=== PATIENT | female | born 1935 | race Caucasian/White ===

== ENCOUNTER 2016-12-15 10:20 | Inpatient (IN) | payer MEDICARE ==
[~2016-12-15] VITALS: Ht 137.2 cm; Wt 62.0 kg
[~2016-12-15 10:20] MED LIST: ceFAZolin SOD 1 GM in D5W MINI-BAG PLUS 50 ML IV SCH
[2016-12-15] MEDS ORDERED: PERCOCET 5MG/325MG TAB PO PRN ×4 (13:30→23:30)
[2016-12-15] MEDS ORDERED: ONDANSETRON 4MG/2ML VIAL (J2405) IV PRN ×2 (13:30→23:15)
[2016-12-15] MEDS ORDERED: NALOXONE INJ 0.4 MG/1 ML VIAL (J2310) IV PRN (13:30)
[2016-12-15] MEDS ORDERED: MORPHINE 2 MG/ML 1ML SYRINGE IV PRN ×2 (13:30→23:15)
[2016-12-15 15:05] VITALS: BP 123/69
[2016-12-15 15:54] LABS: INR 1.12
[2016-12-15 16:10] LABS: ALBUMIN 3.6 GM/DL (3.2-5.2); ALBUMIN/GLOBULIN RATIO 1.29 (1.00-1.93); ALKALINE PHOSPHATASE 68 U/L (45-117); ALT/SGPT 20 U/L (12-78); ANION GAP 8 MEQ/L (8-16); AST/SGOT 24 U/L (15-37); BILIRUBIN,TOTAL 0.7 MG/DL (0.2-1.0); BLOOD UREA NITROGEN 18 MG/DL (7-18); CARBON DIOXIDE LEVEL 27 MEQ/L (21-32); CHLORIDE LEVEL 106 MEQ/L (98-107); CREATININE FOR GFR 0.84 MG/DL (0.55-1.02); GLOMERULAR FILTRATION RATE > 60.0 (>32); GLUCOSE, FASTING 112 MG/DL (83-110); POTASSIUM SERUM 4.2 MEQ/L (3.5-5.1); SODIUM LEVEL 141 MEQ/L (136-145); TOTAL PROTEIN 6.4 GM/DL (6.4-8.2)
[2016-12-15 16:19] LABS: MEAN CORPUSCULAR HEMOGLOBIN 31.5 pg (27.0-33.0); MEAN CORPUSCULAR HGB CONC 32.9 g/dl (32.0-36.5); MEAN CORPUSCULAR VOLUME 95.8 fl (80.0-96.0); RED CELL DISTRIBUTION WIDTH 13.1 % (11.5-14.5); WHITE BLOOD COUNT 8.7 K/mm3 (4.0-10.0)
[2016-12-15] MEDS ORDERED: CALCTAB75 PO (16:20)
[2016-12-15] MEDS ORDERED: ASPI81TA7 PO (16:20)
[2016-12-15] MEDS ORDERED: VITMTA PO (16:20)
[2016-12-15] MEDS ORDERED: ATOR1TAB19 PO (16:20)
[2016-12-15] MEDS ORDERED: FISH500C PO (16:20)
[2016-12-15] MEDS ORDERED: COLA100C3 PO (16:20)
[2016-12-15] MEDS ORDERED: PRESCAP PO (16:20)
[2016-12-15] MEDS ORDERED: LYSI500C PO (16:20)
[2016-12-15] MEDS ORDERED: BIMA01SOL OU (16:20)
[2016-12-15] MEDS ORDERED: VITA500T3 PO (16:20)
[2016-12-15] MEDS ORDERED: LISI-542 PO (16:20)
--- NOTE | 2016-12-15 19:09 | CR ---
DATE OF CONSULTATION: 12/15/2016 CHIEF COMPLAINT: Left hip fracture interochanteric. HISTORY: This is an 81-year-old woman who lives in [place] with her family who presents here with a left hip fracture after presenting to [facility] this morning. She fell when she was going to close the window. She was transferred here to as a direct admission to the medical service. Denies any other injury. There is noted to be a bruise left shoulder and her left proximal leonardo. She denies any pain other than her left hip pain. The record here indicates that this actually happened last night. MEDICATIONS: Medications include aspirin, lisinopril, atorvastatin, Lumigan ophthalmic, Colace, polyethylene glycol as needed ALLERGIES: NO KNOWN DRUG ALLERGIES MEDICAL PROBLEMS: Include hypertension, hypercholesterolemia. PAST MEDICAL HISTORY: Notable for hypertension, constipation. REVIEW OF SYSTEMS: She denies any chest pain, shortness of breath. Denies any skin problems. Denies any endocrine abnormalities. Denies any kidney, liver problems. PHYSICAL EXAMINATION: GENERAL: On exam otherwise fairly healthy appearing woman no acute distress. She is mildly confused, her baseline according to the daughter and son-in-law. HEENT: Extraocular muscles intact. Pharynx is benign. She has nonlabored breathing. She has a benign abdomen soft, nontender. EXTREMITIES: Left upper extremity demonstrates some bruising over the anterior aspect of her left shoulder which she tolerates is a full range of motion. Shoulder with no significant irritability. Her left lower extremity is shortened and externally rotated and I did not attempt range of motion of her left hip but her right hip does not seem to be irritable and she has no tenderness of right lower extremity. Left lower extremity demonstrates some bruising over the proximal medial leonardo. Radiographs were available on a CD that were difficult to bring us on the computer but eventually I was able to identify that the AP pelvis and left femur demonstrates that she has a comminuted, shortened intertrochanteric hip fracture on the left. Left shoulder x-ray was interpreted as unremarkable for any obvious fracture. I do not see any clear evidence of any evidence of a tib-fib film. IMPRESSION: 81-year-old woman with left intertrochanteric hip fracture. RECOMMENDATIONS: She will need medical clearance for the operating room. I have ordered preoperative antibiotics type and screen kept her nothing by mouth. I have requested that the that orthopedics be contacted when she is medically cleared. CRISTHIAN's and sequential will be ordered. I would prefer that we avoid anticoagulation medications unless there is going to be a significant delay. For now we will use TEDS and sequential and be available when she is ready for the operating room.
[2016-12-15] MEDS ORDERED: DOCUSATE SODIUM 100 MG CAP PO PRN (19:15)
[2016-12-15] MEDS ORDERED: fentaNYL 100 MCG/2 ML INJECTION (J3010) As Ordered ONE (19:57)
[2016-12-15] MEDS ORDERED: MIDAZOLAM INJ 2 MG/2 ML VIAL (J2250) As Ordered ONE (19:57)
[2016-12-15] MEDS ORDERED: PROPOFOL 500 MG/50 ML VIAL As Ordered ONE (19:57)
[2016-12-15] MEDS ORDERED: ONDANSETRON 4MG/2ML VIAL (J2405) As Ordered ONE (20:02)
[2016-12-15] MEDS ORDERED: ROCURONIUM BROMIDE 50 MG/5 ML VIAL As Ordered ONE (20:23)
[2016-12-15] MEDS ORDERED: PROPOFOL 200 MG/20 ML VIAL As Ordered ONE (20:23)
[2016-12-15] MEDS ORDERED: LIDOCAINE 2% INJ 100 MG/5 ML SDV (FOR ANES.) As Ordered ONE (20:23)
--- NOTE | 2016-12-15 22:01 | HPE ---
DATE OF ADMISSION: 12/15/2016 PRIMARY CARE PHYSICIAN: Dr. Jose Maxwell, however patient is transferring care to Dillan Luciano MD OPHTHALMOLOGIST: Dr. Pollock CHIEF COMPLAINT: Fall. HISTORY OF PRESENT ILLNESS: Ms. Thompson is an 81-year-old female with multiple past medical history who transferred from [facility] to [facility] due to left intertrochanteric fracture. At this time patient also has altered mental status possibly secondary to medication (Fentanyl and Percocet) as well as history of Alzheimer's. Patient was accompanied by her children. One of her daughters explained that she had one episode of fall early this morning, according to the documentation from [facility], patient stated earlier that she got up of bed because she thought it was raining and went to the living room to check the windows when she tripped and fell injuring her left hip and has indicated to the EMS that patient has a history of Alzheimer's, however at the time that patient was found by EMS patient was alert and oriented times three and denied having headache, neck or back injury. She also denied numbness and tingling, syncope or near syncope episode. According to the documentation from [facility], patient said that it was a mechanical fall however it was not witnessed by and patient was laying down on the floor for about one hour before found her and called 911. However, due to altered mental status this cannot be verified by patient at this time. ALLERGIES: No known drug allergies. HOME MEDICATION: - aspirin 81 mg by mouth daily - atorvastatin 10 mg by mouth daily - Lumigan one drop both eyes at bedtime - calcium/vitamin D 1 tab by mouth daily - vitamin B12 500 mg by mouth daily - Colace 100 mg by mouth daily as needed constipation - Fish oil 500 mg by mouth daily - lisinopril 5 mg by mouth daily - lysin 500 mg by mouth daily - multivitamin 1 tab by mouth daily - PreserVision AREDS 1 capsule by mouth daily PAST MEDICAL HISTORY: 1. Hypertension. 2. Hypercholesterolemia. PAST SURGICAL HISTORY: No known surgeries. REVIEW OF SYSTEMS: Review of system could not be obtained due to patient's altered mental status. PHYSICAL EXAMINATION: Vital signs: Temperature 99, pulse 92, respiratory rate 18 , blood pressure 123/69, pulse ox 95% on room air. GENERAL APPEARANCE: Patient was lying in bed in no acute distress. Patient was awake, but not oriented to time, place and person. HEENT: Normocephalic, atraumatic. Pupils equal, round, reactive to light. Oral mucosa is moist. NECK: Soft, supple, no lymphadenopathy. No jugular venous distention. HEART: Regular rate and rhythm, normal S1, S2. ABDOMEN; Soft, non-tender, positive bowel sounds in all quadrants. LUNGS: Patient has clear breath sounds bilaterally. Good air movement. EXTREMITIES: Patient has tenderness to palpation of the left hip as well as swelling compared to the right hip, however no ecchymosis was noticed in that area. The range of motion cannot be obtained due to patient uncooperative to altered mental status. However, patient has normal sensation in both lower extremities. Also due to altered mental status I cannot evaluate the length and her position in bed. I cannot evaluate the patient's lower extremity length to compare. Patient also has mild ecchymotic changes on the left shoulder as well as mild tenderness. NEURO: Neuro exam cannot be obtained due to patient's altered mental status. LABORATORY DATA: White blood cells 8.7, red blood cells 3.49, hemoglobin 11, hematocrit 33.4, MCV 95.8, MCH 31.5, MCHC 32.9, RDW 13.1, platelet count 188, PT 14.5, INR 1.12, APTT 28.1, sodium 141, potassium 4.2, chloride 106, common dioxide 27, anion gap 8, BUN 18, creatinine 0.84, glomerular filtration rate (GFR) more than 60, fasting glucose 112, calcium 9, total bilirubin 0.7, AST 24, ALT 20, alkaline phosphatase 68, total protein 6.4, albumin 3.6. IMAGING TECHNIQUE: X-ray of the femur shows left intertrochanteric fracture. Chest x-ray from [facility] indicated no acute disease identified. CT scan of the brain without contrast from [facility] indicated moderate diffuse cerebral atrophy and small vessel atherosclerotic disease. X-ray of pelvis from [facility] indicated left intertrochanteric fracture. X-ray of the shoulder from [facility] indicated mild osteopenia of the shoulder. ASSESSMENT AND PLAN: 1. Left intertrochanteric fracture. Orthopedic has been consulted. patient will be NPO tonight. Also patient is started on cefazolin by orthopedics for prophylaxis as well as pain management. Patient is medically optimized for procedure. 2. Altered mental status. This is possibly secondary to pain medication ( Fentanyl and Percocet). At this time, patient has received two doses of Narcan 0.1 mg due to altered mental status, however patient continued to have altered mental status. We will continue patient on Narcan 0.1 mg every 5 MP as needed IV for respiratory rate less than 10. according to the documentation form [facility] patient's indicated that patient has Alzheimer however I could not find medical documentation to indicate that. 3. Hyperlipidemia. We will continue patient on Lipitor 10 mg by mouth daily. 4. GI prophylaxis. Due to patient being nothing by mouth patient is on Protonix 40 mg by mouth daily. 5. Deep vein thrombosis prophylaxis. Patient is on thromboembolic deterrent stockings (TEDS) and sequentials. 6. Hypertension. At home patient is on Lisinopril 5 m by mouth daily. However, at this time patient's blood pressure is stable. We will hold this medication until after surgery. 7. Hypercholesterolemia. We will continue patient on fish oil 500 mg by mouth daily. My preceptor for this patient encounter was Dr. Doug Martinez. The preceptor was physically present in the building during the encounter and was fully available as needed. All aspects of the patient interview, examination, medical decision making process, and medical care plan development were reviewed and approved by the preceptor. The preceptor is aware and concurs with the plan as stated in the body of this note and will attest to such by his/her co-signature. TOMÁS
[2016-12-15] MEDS ORDERED: SUGAMMADEX SODIUM 500 MG/5 ML VIAL (BRIDION) As Ordered ONE (22:25)
[2016-12-15] MEDS ORDERED: NS 1,000 ML IV SCH (23:15)
[2016-12-15] MEDS ORDERED: LR 1,000 ML IV SCH (23:15)
[2016-12-15] MEDS ORDERED: fentaNYL 100 MCG/2 ML INJECTION (J3010) IV PRN (23:15)
--- NOTE | 2016-12-15 23:28 | REP ---
LEFT LOWER LEG: AP and lateral views of the left lower leg are performed and demonstrate no fracture or dislocation. No intrinsic osseous pathology is seen. IMPRESSION: No fracture or dislocation. Signed by Ziyad Goodman MD 12/16/2016 05:00 P
[2016-12-16] VITALS (9 sets, daily range): BP systolic 96–154; BP diastolic 56–68
[2016-12-16] MEDS: ceFAZolin SOD 1 GM in D5W MINI-BAG PLUS 50 ML IV SCH ×2 (04:27→13:28)
--- NOTE | 2016-12-16 07:30 | REP ---
Left hip intraoperative fluoroscopic views: A series of seven intraoperative fluoroscopic views are performed during placement of an intramedullary fabio in the left hip and left femur. The views demonstrate gamma nail fixation with the skeletal structures and hardware are in satisfactory positions alignment on all views. There are two interference screws at the distal tip of the gamma nail. Fluoroscopic exposure time is 2 minutes and 15 seconds. The intra operative fluoroscopic views are performed with last image hold technology. These images require no additional radiation. Signed by Ziyad Huber MD 12/16/2016 07:21 A
[2016-12-16] MEDS: MIRALAX *UNIT DOSE* 17GM PACKET PO SCH (09:00)
[2016-12-16] MEDS: PANTOPRAZOLE 40MG TAB (PROTONIX) PO SCH (09:00)
[2016-12-16] MEDS: SENOKOT S TAB PO SCH ×2 (09:00→21:00)
[2016-12-16] MEDS: MULTIVITAMINS/MINERALS THERAP 1 TAB PO SCH (09:00)
[2016-12-16] MEDS: MOM 30ML SUSPENSION UDC PO SCH (09:00)
[2016-12-16] MEDS: ATORVASTATIN 10 MG TAB PO SCH (09:00)
[2016-12-16 11:41] LABS: MEAN CORPUSCULAR HEMOGLOBIN 32.1 pg (27.0-33.0); MEAN CORPUSCULAR HGB CONC 33.8 g/dl (32.0-36.5); RED CELL DISTRIBUTION WIDTH 13.2 % (11.5-14.5)
[2016-12-16 12:01] LABS: ANION GAP 10 MEQ/L (8-16); BLOOD UREA NITROGEN 18 MG/DL (7-18); CARBON DIOXIDE LEVEL 23 MEQ/L (21-32); CHLORIDE LEVEL 108 MEQ/L (98-107); CREATININE FOR GFR 0.78 MG/DL (0.55-1.02); GLOMERULAR FILTRATION RATE > 60.0 (>32); GLUCOSE, FASTING 96 MG/DL (83-110); MAGNESIUM LEVEL 1.9 MG/DL (1.8-2.4); POTASSIUM SERUM 3.9 MEQ/L (3.5-5.1); SODIUM LEVEL 141 MEQ/L (136-145)
--- NOTE | 2016-12-16 12:06 | RO ---
DATE OF PROCEDURE: 12/15/2016 PREPROCEDURE DIAGNOSIS: Comminuted left intertrochanteric fracture of the hip, possible pathologic fracture. POSTPROCEDURE DIAGNOSIS: Comminuted left intertrochanteric fracture of the hip, possible pathologic fracture. PROCEDURE PERFORMED: Left hip open reduction and cephalomedullary nailing. PRIMARY SURGEON: Dr. Ion Mg OCEAN FISHING GUIDE: BETSY Allen ANESTHESIA: Spinal. ESTIMATED BLOOD LOSS: 150 mL. SPECIMENS: Reamings from the femoral head and neck. No blood administered. No complications. IMPLANTS: Synthes long trochanteric fixation nail and screws. DESCRIPTION OF PROCEDURE: The patient was identified in the preoperative holding area by name, medical record, and date of . Surgical site was marked in consultation with the patient and she was evaluated by anesthesia. When she was ready, she was brought back to the operative suite on a gurney and transferred to the operating room table. At this point, spinal anesthesia was induced without complication. The patient was placed on the fracture table with the left lower extremity in traction and well leg appropriately padded, appropriately padding all bony prominences. Prior to beginning the procedure, a final time out was performed and all of them agreed. She was given IV antibiotics with Ancef prior to incision. I began the procedure by achieving a provisional closed reduction with axial traction, adduction and internal rotation, confirmed closed reduction with fluoroscopic views. Next, the left lower extremity was sterilely prepped and draped in the usual fashion, and I began the procedure by making a longitudinal dissection proximal to the tip of the greater trochanter. The greater trochanter was significantly comminuted and displaced with no firm entry point. The entry pin and reamer were inserted in the appropriate location, followed by the ball-tipped guidewire confirming satisfactory intramedullary position. Next, the medullary canal was sequentially reamed up to 12.5 with satisfactory chatter along the cortical surface. Next an appropriately sized Synthes trochanteric fixation nail was inserted. I did have to perform a slightly open reduction with proximal dissection of the greater trochanter using upward handle and medial force to maintain the fracture fragment in satisfactory position, while inserting the nail into the appropriately sized hip screw and confirmed satisfactory position within the femoral head and neck at this time with multiple fluoroscopic views in orthogonal planes. I next turned my attention to the distal interlock. Using the perfect stebbins technique, I inserted to appropriately sized distal entry lock screws. The nail was now well fixed distally and in satisfactory position. Final x-rays in orthogonal planes throughout the length of the nail confirmed satisfactory reduction of the fracture and placed into the hardware. Of note, the femoral head and neck reamings were captured and sent to the back table and placed in formalin for pathologic evaluation. The wounds were next copiously irrigated and closed in layers. Sterile dressings were applied. The patient was brought out of anesthesia and transferred to the postanesthesia care unit.
[2016-12-16] MEDS: traMADol 50 MG TAB PO PRN ×2 (13:27→17:43)
--- NOTE | 2016-12-16 15:21 | REP ---
LEFT FEMUR COMPLETE: 12/16/2016 CLINICAL HISTORY: Status post ORIF for comminuted intertrochanteric fracture, left hip. FINDINGS: Four images from postoperative left femur series 12/16/2016 compared to yesterday's acute fracture series. An intramedullary fabio and a blade paddle fixation of the comminuted intertrochanteric fracture with varus deformity has corrected a displaced lesser and the superior margin of the greater trochanter which is displaced medial to the intramedullary fabio abutting the femoral neck at its intertrochanteric junction. Some subcutaneous air related to placement of the intramedullary fabio with proximal lateral thigh and hip and two fixation screws transversely across the distal shaft of the left femur. No other finding. The varus deformity is corrected. Skin jeremiah are present. Signed by Zelalem Terrazas MD 12/16/2016 03:58 P
[2016-12-16] MEDS ORDERED: WARFARIN SOD 5 MG TAB PO ONE (17:00)
--- NOTE | 2016-12-16 17:54 | REP ---
LEFT HIP, TWO VIEWS: Two views of the left hip are performed. There is a comminuted intertrochanteric fracture of the proximal left femur. There is varus angulation. On the oblique view there is a somewhat rounded area of lucency in the femoral neck region, which I feel is most likely artifactual, although an underlying bone lesion cannot be completely excluded. Signed by Ziyad Goodman MD 12/18/2016 05:06 P
--- NOTE | 2016-12-16 18:35 | IPNPDOC ---
Subjective Date Seen The patient was seen on 12/16/16. Subjective Chief Complaint/HPI The patient is a 81-year-old female admitted with a reason for visit of Comminuted Fracture Left Intertrochanteric. Objective Physical Examination General Exam: Positive: No Acute Distress ENT Exam: Positive: Atraumatic, Mucous membr. moist/pink, Pharynx Normal Chest Exam: Positive: Clear to auscultation, Normal air movement Heart Exam: Positive: Rate Normal, Regular Rhythm, Normal S1, Normal S2, Negative: Murmurs, Rubs Assessment /Plan Problems (1) Hip fracture (2) Hip fracture, left Plan/VTE VTE Prophylaxis Ordered?: Yes VS, I&O, 24H, Fishbone Vital Signs/I&O Vital Signs Date Time Temp Pulse Resp B/P (MAP) Pulse Ox O2 Delivery O2 Flow Rate FiO2 12/16/16 18:26 18 12/16/16 14:00 99.5 98 110/60 (77) 94 Nasal Cannula 2.0 I&O- Last 24 Hours up to 6 AM 12/16/16 06:00 Intake Total 2000 ml Output Total 300 ml Balance 1700 ml Laboratory Data 24H LABS Laboratory Tests 2 12/16/16 11:18: Anion Gap 10, Glomerular Filtration Rate > 60.0, Blood Urea Nitrogen 18, Creatinine 0.78, Sodium Level 141, Potassium Level 3.9, Chloride Level 108H, Carbon Dioxide Level 23, Calcium Level 8.0L, Magnesium Level 1.9 CBC/BMP Laboratory Tests 12/16/16 11:18 Red Blood Count 2.67 L, Mean Corpuscular Volume 95.0, Mean Corpuscular Hemoglobin 32.1, Mean Corpuscular Hemoglobin Concent 33.8, Red Cell Distribution Width 13.2, Calcium Level 8.0 L NATHANAEL MONTOYA DO Dec 16, 2016 18:35
[2016-12-17 02:00] VITALS: BP 102/58
[2016-12-17 06:00] VITALS: BP 101/54
[2016-12-17 06:57] LABS: MEAN CORPUSCULAR HEMOGLOBIN 32.1 pg (27.0-33.0); MEAN CORPUSCULAR HGB CONC 33.1 g/dl (32.0-36.5); MEAN CORPUSCULAR VOLUME 96.9 fl (80.0-96.0); RED CELL DISTRIBUTION WIDTH 12.8 % (11.5-14.5); WHITE BLOOD COUNT 7.1 K/mm3 (4.0-10.0)
[2016-12-17 06:59] LABS: INR 1.48
[2016-12-17 07:08] LABS: ANION GAP 6 MEQ/L (8-16); BLOOD UREA NITROGEN 22 MG/DL (7-18); CALCIUM LEVEL 8.2 MG/DL (8.8-10.2); CARBON DIOXIDE LEVEL 27 MEQ/L (21-32); CHLORIDE LEVEL 105 MEQ/L (98-107); CREATININE FOR GFR 0.89 MG/DL (0.55-1.02); GLOMERULAR FILTRATION RATE > 60.0 (>32); GLUCOSE, FASTING 112 MG/DL (83-110); MAGNESIUM LEVEL 2.2 MG/DL (1.8-2.4); POTASSIUM SERUM 3.9 MEQ/L (3.5-5.1); SODIUM LEVEL 138 MEQ/L (136-145)
[2016-12-17] MEDS: ATORVASTATIN 10 MG TAB PO SCH (09:00)
[2016-12-17] MEDS: MULTIVITAMINS/MINERALS THERAP 1 TAB PO SCH (09:00)
[2016-12-17] MEDS: MIRALAX *UNIT DOSE* 17GM PACKET PO SCH (09:00)
[2016-12-17] MEDS: SENOKOT S TAB PO SCH ×2 (09:00→21:00)
[2016-12-17] MEDS: MOM 30ML SUSPENSION UDC PO SCH (09:00)
[2016-12-17] MEDS: PANTOPRAZOLE 40MG TAB (PROTONIX) PO SCH (09:00)
[2016-12-17] MEDS: NS 1,000 ML IV SCH ×2 (12:03→20:50)
[2016-12-17] MEDS ORDERED: WARFARIN SOD 5 MG TAB PO ONE (17:00)
--- NOTE | 2016-12-17 18:29 | IPNPDOC ---
Subjective Date Seen The patient was seen on 12/17/16. Subjective Chief Complaint/HPI The patient is a 81-year-old female admitted with a reason for visit of Comminuted Fracture Left Intertrochanteric. Assessment /Plan Problems (1) Hip fracture Plan/VTE VTE Prophylaxis Ordered?: Yes VS, I&O, 24H, Fishbone Vital Signs/I&O Vital Signs Date Time Temp Pulse Resp B/P (MAP) Pulse Ox O2 Delivery O2 Flow Rate FiO2 12/17/16 08:50 Room Air 12/17/16 06:00 98.6 77 18 101/54 (70) 99 2.0 I&O- Last 24 Hours up to 6 AM 12/17/16 06:00 Intake Total 360 ml Output Total 0 ml Balance 360 ml Laboratory Data 24H LABS Laboratory Tests 2 12/17/16 06:34: Prothrombin Time 18.0H, Prothromb Time International Ratio 1.48, Anion Gap 6L, Glomerular Filtration Rate > 60.0, Blood Urea Nitrogen 22H, Creatinine 0.89, Sodium Level 138, Potassium Level 3.9, Chloride Level 105, Carbon Dioxide Level 27, Calcium Level 8.2L, Magnesium Level 2.2 CBC/BMP Laboratory Tests 12/17/16 06:34 Red Blood Count 2.53 L, Mean Corpuscular Volume 96.9 H, Mean Corpuscular Hemoglobin 32.1, Mean Corpuscular Hemoglobin Concent 33.1, Red Cell Distribution Width 12.8, Calcium Level 8.2 L NATHANAEL MONTOYA DO Dec 17, 2016 18:29
[2016-12-17 22:00] VITALS: BP 129/68
[2016-12-18 06:00] VITALS: BP 135/67
[2016-12-18 06:34] LABS: MEAN CORPUSCULAR HEMOGLOBIN 31.7 pg (27.0-33.0); MEAN CORPUSCULAR HGB CONC 33.8 g/dl (32.0-36.5); MEAN CORPUSCULAR VOLUME 93.8 fl (80.0-96.0); RED CELL DISTRIBUTION WIDTH 13.6 % (11.5-14.5); WHITE BLOOD COUNT 8.4 K/mm3 (4.0-10.0)
[2016-12-18 06:47] LABS: INR 1.48
[2016-12-18 06:54] LABS: ANION GAP 9 MEQ/L (8-16); BLOOD UREA NITROGEN 14 MG/DL (7-18); CALCIUM LEVEL 8.4 MG/DL (8.8-10.2); CARBON DIOXIDE LEVEL 24 MEQ/L (21-32); CHLORIDE LEVEL 110 MEQ/L (98-107); CREATININE FOR GFR 0.68 MG/DL (0.55-1.02); GLOMERULAR FILTRATION RATE > 60.0 (>32); GLUCOSE, FASTING 113 MG/DL (83-110); POTASSIUM SERUM 3.5 MEQ/L (3.5-5.1); SODIUM LEVEL 143 MEQ/L (136-145)
[2016-12-18] MEDS: MOM 30ML SUSPENSION UDC PO SCH (09:00)
[2016-12-18] MEDS: MIRALAX *UNIT DOSE* 17GM PACKET PO SCH (09:00)
[2016-12-18] MEDS: ENOXAPARIN 30 MG/0.3 ML SYR (J1650) SC SCH (09:16)
[2016-12-18] MEDS: MULTIVITAMINS/MINERALS THERAP 1 TAB PO SCH (09:16)
[2016-12-18] MEDS: SENOKOT S TAB PO SCH ×2 (09:16→20:39)
[2016-12-18] MEDS: PANTOPRAZOLE 40MG TAB (PROTONIX) PO SCH (09:16)
[2016-12-18] MEDS: ATORVASTATIN 10 MG TAB PO SCH (09:16)
[2016-12-18] MEDS: ACETAMINOPHEN TAB 650MG DOSE (2X325MG) PO PRN ×2 (09:17→20:40)
[2016-12-18] MEDS: NS 1,000 ML IV SCH ×2 (10:10→23:02)
[2016-12-18 14:00] VITALS: BP 122/65
[2016-12-18] MEDS ORDERED: WARFARIN SOD 3 MG TAB PO ONE (17:00)
[2016-12-18 22:00] VITALS: BP 134/63
[2016-12-19 06:00] VITALS: BP 141/65
[2016-12-19 06:44] LABS: MEAN CORPUSCULAR HEMOGLOBIN 31.9 pg (27.0-33.0); MEAN CORPUSCULAR HGB CONC 33.7 g/dl (32.0-36.5); MEAN CORPUSCULAR VOLUME 94.7 fl (80.0-96.0); RED CELL DISTRIBUTION WIDTH 13.6 % (11.5-14.5); WHITE BLOOD COUNT 7.5 K/mm3 (4.0-10.0)
[2016-12-19 06:58] LABS: ANION GAP 7 MEQ/L (8-16); BLOOD UREA NITROGEN 12 MG/DL (7-18); CALCIUM LEVEL 8.5 MG/DL (8.8-10.2); CARBON DIOXIDE LEVEL 26 MEQ/L (21-32); CHLORIDE LEVEL 110 MEQ/L (98-107); CREATININE FOR GFR 0.61 MG/DL (0.55-1.02); GLOMERULAR FILTRATION RATE > 60.0 (>32); GLUCOSE, FASTING 100 MG/DL (83-110); MAGNESIUM LEVEL 2.1 MG/DL (1.8-2.4); POTASSIUM SERUM 3.3 MEQ/L (3.5-5.1); SODIUM LEVEL 143 MEQ/L (136-145)
[2016-12-19] MEDS: MULTIVITAMINS/MINERALS THERAP 1 TAB PO SCH ×2 (09:00→10:04)
[2016-12-19] MEDS: SENOKOT S TAB PO SCH ×2 (10:04→20:18)
[2016-12-19] MEDS: MOM 30ML SUSPENSION UDC PO SCH (10:04)
[2016-12-19] MEDS: ENOXAPARIN 30 MG/0.3 ML SYR (J1650) SC SCH (10:04)
[2016-12-19] MEDS: PANTOPRAZOLE 40MG TAB (PROTONIX) PO SCH (10:04)
[2016-12-19] MEDS: MIRALAX *UNIT DOSE* 17GM PACKET PO SCH (10:04)
[2016-12-19] MEDS: ATORVASTATIN 10 MG TAB PO SCH (10:04)
[2016-12-19] MEDS: NS 1,000 ML IV SCH (11:56)
[2016-12-19] MEDS: ACETAMINOPHEN TAB 650MG DOSE (2X325MG) PO PRN (12:25)
[2016-12-19 14:00] VITALS: BP 112/66
[2016-12-19 22:00] VITALS: BP 144/71
[2016-12-20] MEDS: NS 1,000 ML IV SCH ×2 (01:56→12:26)
[2016-12-20 06:00] VITALS: BP_SYST 123; BP_SYST 144; BP_DIAS 68; BP_DIAS 71
[2016-12-20 07:15] LABS: MEAN CORPUSCULAR HEMOGLOBIN 31.6 pg (27.0-33.0); MEAN CORPUSCULAR HGB CONC 33.6 g/dl (32.0-36.5); MEAN CORPUSCULAR VOLUME 94.2 fl (80.0-96.0); RED CELL DISTRIBUTION WIDTH 13.4 % (11.5-14.5); WHITE BLOOD COUNT 7.5 K/mm3 (4.0-10.0)
[2016-12-20 07:16] LABS: ANION GAP 9 MEQ/L (8-16); BLOOD UREA NITROGEN 13 MG/DL (7-18); CALCIUM LEVEL 8.2 MG/DL (8.8-10.2); CARBON DIOXIDE LEVEL 24 MEQ/L (21-32); CHLORIDE LEVEL 110 MEQ/L (98-107); CREATININE FOR GFR 0.56 MG/DL (0.55-1.02); GLOMERULAR FILTRATION RATE > 60.0 (>32); GLUCOSE, FASTING 102 MG/DL (83-110); MAGNESIUM LEVEL 1.8 MG/DL (1.8-2.4); POTASSIUM SERUM 3.3 MEQ/L (3.5-5.1); SODIUM LEVEL 143 MEQ/L (136-145)
[2016-12-20] MEDS: ATORVASTATIN 10 MG TAB PO SCH (07:59)
[2016-12-20] MEDS: MIRALAX *UNIT DOSE* 17GM PACKET PO SCH (08:00)
[2016-12-20] MEDS: SENOKOT S TAB PO SCH ×2 (08:00→21:03)
[2016-12-20] MEDS: ENOXAPARIN 30 MG/0.3 ML SYR (J1650) SC SCH (08:00)
[2016-12-20] MEDS: MULTIVITAMINS/MINERALS THERAP 1 TAB PO SCH (08:00)
[2016-12-20] MEDS: PANTOPRAZOLE 40MG TAB (PROTONIX) PO SCH (08:00)
[2016-12-20] MEDS: MOM 30ML SUSPENSION UDC PO SCH (08:09)
[2016-12-20] MEDS: KCL 10MEQ IN 100ML SWI (KRUN) 10 MEQ in APPROPRIATE DILUENT 1 EA IV SCH ×4 (13:39→14:49)
[2016-12-20 14:00] VITALS: BP 154/72
[2016-12-20 22:00] VITALS: BP 137/73
[2016-12-21 06:00] VITALS: BP 124/67
[2016-12-21 06:44] LABS: MEAN CORPUSCULAR HEMOGLOBIN 31.7 pg (27.0-33.0); MEAN CORPUSCULAR HGB CONC 33.4 g/dl (32.0-36.5); MEAN CORPUSCULAR VOLUME 95.1 fl (80.0-96.0); RED CELL DISTRIBUTION WIDTH 13.2 % (11.5-14.5); WHITE BLOOD COUNT 6.8 K/mm3 (4.0-10.0)
[2016-12-21 07:08] LABS: ANION GAP 5 MEQ/L (8-16); BLOOD UREA NITROGEN 15 MG/DL (7-18); CALCIUM LEVEL 8.3 MG/DL (8.8-10.2); CARBON DIOXIDE LEVEL 27 MEQ/L (21-32); CHLORIDE LEVEL 108 MEQ/L (98-107); CREATININE FOR GFR 0.66 MG/DL (0.55-1.02); GLOMERULAR FILTRATION RATE > 60.0 (>32); GLUCOSE, FASTING 92 MG/DL (83-110); MAGNESIUM LEVEL 2.2 MG/DL (1.8-2.4); POTASSIUM SERUM 3.6 MEQ/L (3.5-5.1); SODIUM LEVEL 140 MEQ/L (136-145)
[2016-12-21] MEDS: MIRALAX *UNIT DOSE* 17GM PACKET PO SCH (10:47)
[2016-12-21] MEDS: MOM 30ML SUSPENSION UDC PO SCH (10:47)
[2016-12-21] MEDS: ATORVASTATIN 10 MG TAB PO SCH (10:48)
[2016-12-21] MEDS: ENOXAPARIN 30 MG/0.3 ML SYR (J1650) SC SCH (10:48)
[2016-12-21] MEDS: SENOKOT S TAB PO SCH ×2 (10:48→21:38)
[2016-12-21] MEDS: PANTOPRAZOLE 40MG TAB (PROTONIX) PO SCH (10:49)
[2016-12-21] MEDS: MULTIVITAMINS/MINERALS THERAP 1 TAB PO SCH (10:49)
[2016-12-21] MEDS: ACETAMINOPHEN TAB 650MG DOSE (2X325MG) PO PRN (21:40)
[2016-12-21 22:00] VITALS: BP 120/71
[2016-12-22] MEDS: ACETAMINOPHEN TAB 650MG DOSE (2X325MG) PO PRN ×3 (03:48→20:12)
[2016-12-22 06:00] VITALS: BP 87/52
[2016-12-22 06:56] LABS: MEAN CORPUSCULAR HEMOGLOBIN 31.7 pg (27.0-33.0); MEAN CORPUSCULAR HGB CONC 32.8 g/dl (32.0-36.5); MEAN CORPUSCULAR VOLUME 96.6 fl (80.0-96.0); RED CELL DISTRIBUTION WIDTH 13.4 % (11.5-14.5); WHITE BLOOD COUNT 6.3 K/mm3 (4.0-10.0)
[2016-12-22 07:09] LABS: ANION GAP 5 MEQ/L (8-16); BLOOD UREA NITROGEN 18 MG/DL (7-18); CALCIUM LEVEL 8.6 MG/DL (8.8-10.2); CARBON DIOXIDE LEVEL 28 MEQ/L (21-32); CHLORIDE LEVEL 108 MEQ/L (98-107); CREATININE FOR GFR 0.78 MG/DL (0.55-1.02); GLOMERULAR FILTRATION RATE > 60.0 (>32); GLUCOSE, FASTING 88 MG/DL (83-110); MAGNESIUM LEVEL 2.1 MG/DL (1.8-2.4); POTASSIUM SERUM 3.8 MEQ/L (3.5-5.1); SODIUM LEVEL 141 MEQ/L (136-145)
[2016-12-22] MEDS: MIRALAX *UNIT DOSE* 17GM PACKET PO SCH (10:59)
[2016-12-22] MEDS: MOM 30ML SUSPENSION UDC PO SCH (10:59)
[2016-12-22] MEDS: PANTOPRAZOLE 40MG TAB (PROTONIX) PO SCH (11:00)
[2016-12-22] MEDS: ENOXAPARIN 30 MG/0.3 ML SYR (J1650) SC SCH (11:00)
[2016-12-22] MEDS: ATORVASTATIN 10 MG TAB PO SCH (11:00)
[2016-12-22] MEDS: SENOKOT S TAB PO SCH ×2 (11:00→20:13)
[2016-12-22] MEDS: MULTIVITAMINS/MINERALS THERAP 1 TAB PO SCH (11:00)
[2016-12-22 22:00] VITALS: BP 119/68
[2016-12-23 06:00] VITALS: BP 139/76
[2016-12-23] MEDS: MIRALAX *UNIT DOSE* 17GM PACKET PO SCH (09:36)
[2016-12-23] MEDS: ENOXAPARIN 30 MG/0.3 ML SYR (J1650) SC SCH (09:36)
[2016-12-23] MEDS: MULTIVITAMINS/MINERALS THERAP 1 TAB PO SCH (09:37)
[2016-12-23] MEDS: SENOKOT S TAB PO SCH (09:37)
[2016-12-23] MEDS: ATORVASTATIN 10 MG TAB PO SCH (09:37)
[2016-12-23] MEDS: PANTOPRAZOLE 40MG TAB (PROTONIX) PO SCH (09:37)
[2016-12-23] MEDS: MOM 30ML SUSPENSION UDC PO SCH (09:45)
[2016-12-23] MEDS ORDERED: LOVE1INJ2 SC (11:35)
[2016-12-23] MEDS ORDERED: ACET65TA PO (11:35)
--- NOTE | 2016-12-23 16:07 | DS.PDOC ---
Discharge Summary General Date of Admission Dec 15, 2016 at 15:05 Date of Discharge 12/23/16 Discharge Summary PROCEDURES PERFORMED DURING STAY: left hip open reduction and cephalomedllary nailing ADMITTING DIAGNOSES: 1. .left hip intertrochanteric fracture DISCHARGE DIAGNOSES: 1. . left hip open reduction and cephalomedllary nailing COMPLICATIONS/CHIEF COMPLAINT: Comminuted Fracture Left Intertrochanteric. HISTORY OF PRESENT ILLNESS: . 81-year-old female with past medical history of hypertension, dyslipidemia, and dementia presented to the ER from [facility] to [facility] after she got up out of bed and tripped injuring her left hip. The patient was subsequently found to have a left intertrochanteric fracture. The patient was seen by orthopedic surgeon and was subsequently taken to the OR on 12/15/16 for a left hip open reduction and cephalomedllary nailing. Following surgery, the patient was seen by physical therapy and she was recommended to need rehabilitation placement. At this time, the patient will be discharged to [facility] for further optimization of functional status. DISCHARGE MEDICATIONS: Please see below. ALLERGIES: Please see below. PHYSICAL EXAMINATION ON DISCHARGE: VITAL SIGNS: Please see below. General Exam: Positive: No Acute Distress ENT Exam: Positive: Atraumatic, Mucous membr. moist/pink, Pharynx Normal Chest Exam: Positive: Clear to auscultation, Normal air movement Heart Exam: Positive: Rate Normal, Regular Rhythm, Normal S1, Normal S2, Negative: Murmurs, Rubs Extremities: Left Hip with limited ROM 2/2 recent surgery LABORATORY DATA: Please see below. IMAGING: : Status post ORIF for comminuted intertrochanteric fracture, left hip. FINDINGS: Four images from postoperative left femur series 12/16/2016 compared to yesterday's acute fracture series. An intramedullary fabio and a blade paddle fixation of the comminuted intertrochanteric fracture with varus deformity has corrected a displaced lesser and the superior margin of the greater trochanter which is displaced medial to the intramedullary fabio abutting the femoral neck at its intertrochanteric junction. Some subcutaneous air related to placement of the intramedullary fabio with proximal lateral thigh and hip and two fixation screws transversely across the distal shaft of the left femur. No other finding. The varus deformity is corrected. Skin jeremiah are present. PROGNOSIS: Medically stable ACTIVITY: As tolerated. DIET: . 2 g low sodium diet DISCHARGE PLAN: to [facility] for Rehab DISPOSITION: [facility]. DISCHARGE INSTRUCTIONS: 1. . Follow-up with primary care physician within one week 2. . Follow-up with orthopedic surgery within 2-3 weeks DISCHARGE CONDITION: Stable. TIME SPENT ON DISCHARGE: Greater than 30 minutes. Vital Signs/I&Os Vital Signs Date Time Temp Pulse Resp B/P (MAP) Pulse Ox O2 Delivery O2 Flow Rate FiO2 12/23/16 06:00 98.5 79 14 139/76 (97) 94 Room Air 12/17/16 06:00 2.0 I&O- Last 24 Hours up to 6 AM 12/23/16 06:00 Intake Total 480 ml Output Total 1000 ml Balance -520 ml Laboratory Data CBC/BMP Laboratory Tests 12/23/16 10:04 Discharge Medications Scheduled (Preservision Areds) 1 Cap Cap, 1 CAP PO DAILY, (Reported) Atorvastatin Calcium (Atorvastatin Calcium) 10 Mg Tab, 10 MG PO DAILY, (Reported ) Bimatoprost (Lumigan) 50 Drop/2.5 Ml Gillian, 1 DROP OU QHS, (Reported) Calcium/Vitamin D (Calcium 500 +D 500-400 mg-Unit) 1 Tab Tab, 1 TAB PO DAILY, ( Reported) Cyanocobalamin (Vitamin B-12) 500 Mcg Tab, 500 MCG PO DAILY, (Reported) Enoxaparin Sodium (Lovenox) 30 Mg/0.3 Ml Inj, 30 MG SC DAILY Fish Oil (Fish Oil) 500 Mg Cap, 500 MG PO DAILY, (Reported) Lisinopril (Lisinopril) 5 Mg Tab, 5 MG PO DAILY, (Reported) Lysine (Lysine) 500 Mg Cap, 500 MG PO DAILY, (Reported) Multivitamins *[facility] STOCKED* (Thera M Plus *[facility] STOCKED*) 1 Tab Tab, 1 TAB PO DAILY, (Reported) Scheduled PRN Acetaminophen (Mapap) 325 Mg Tab, 650 MG PO Q4HP PRN for MILD PAIN OR FEVER Docusate Sodium (Colace) 100 Mg Cap, 100 MG PO DAILY PRN for BOWEL CARE/ CONSTIPATION, (Reported) Allergies Coded Allergies: No Known Allergies (Unverified , 12/15/16) YUDELKA XIAO MD Dec 23, 2016 16:07
== END 2016-12-23 12:30 | DRG 482 ==
LOC: M MS5PR 15:05
PROVIDERS: ADMIT Family Medicine; ATTEND Internal Medicine Nephrology
PROC: 0QS706Z Reposition Left Upper Femur with Intramedullary Internal Fixation Device, Open Approach (ICD-10-PCS; principal; 2016-12-15 19:31)
PROC: 30233N1 Transfusion of Nonautologous Red Blood Cells into Peripheral Vein, Percutaneous Approach (ICD-10-PCS; 2016-12-17)
DX: S72.145A Nondisplaced intertrochanteric fracture of left femur, initial encounter for closed fracture (principal); R41.82 Altered mental status, unspecified; I10 Essential (primary) hypertension; G30.9 Alzheimer's disease, unspecified; F02.80 Dementia in other diseases classified elsewhere, unspecified severity, without behavioral disturbance, psychotic disturbance, mood disturbance, and anxiety; E78.5 Hyperlipidemia, unspecified; E78.00 Pure hypercholesterolemia, unspecified; W06.XXXA Fall from bed, initial encounter; Y92.003 Bedroom of unspecified non-institutional (private) residence as the place of occurrence of the external cause; Y93.89 Activity, other specified; Y99.9 Unspecified external cause status; Z79.899 Other long term (current) drug therapy; Z79.82 Long term (current) use of aspirin

== ENCOUNTER → 2016-12-31 | Outpatient (REF) ==
[~2016-12-31] MED LIST changes: +ASPI1TAB15 PO; +ATOR1TAB19 PO; +BIMA01SOL OU; +CALCTAB75 PO; +COLA100C5 PO; +FISH500C PO; +LISI-542 PO; +LOVE1INJ2 SC; +LYSI500C PO; +MAPA325T3 PO; +PRESCAP PO; +VITA500T3 PO; +VITMTA PO; -ceFAZolin SOD 1 GM in D5W MINI-BAG PLUS 50 ML IV SCH
[2016-12-31 10:58] LABS: MEAN CORPUSCULAR HEMOGLOBIN 31.4 pg (27.0-33.0); MEAN CORPUSCULAR HGB CONC 31.7 g/dl (32.0-36.5); MEAN CORPUSCULAR VOLUME 98.9 fl (80.0-96.0); RED CELL DISTRIBUTION WIDTH 13.7 % (11.5-14.5); WHITE BLOOD COUNT 5.8 K/mm3 (4.0-10.0)
[2016-12-31 11:18] LABS: ANION GAP 10 MEQ/L (8-16); BLOOD UREA NITROGEN 16 MG/DL (7-18); CARBON DIOXIDE LEVEL 26 MEQ/L (21-32); CHLORIDE LEVEL 108 MEQ/L (98-107); CREATININE FOR GFR 0.83 MG/DL (0.55-1.02); GLOMERULAR FILTRATION RATE > 60.0 (>32); GLUCOSE, FASTING 95 MG/DL (83-110); POTASSIUM SERUM 4.4 MEQ/L (3.5-5.1); SODIUM LEVEL 144 MEQ/L (136-145)
== END ==
DX: Z00.00 Encounter for general adult medical examination without abnormal findings (principal)

== ENCOUNTER → 2017-01-06 | Outpatient (REF) ==
[2017-01-06 12:01] LABS: MEAN CORPUSCULAR HEMOGLOBIN 30.8 pg (27.0-33.0); MEAN CORPUSCULAR HGB CONC 30.9 g/dl (32.0-36.5); MEAN CORPUSCULAR VOLUME 99.6 fl (80.0-96.0); RED CELL DISTRIBUTION WIDTH 13.7 % (11.5-14.5); WHITE BLOOD COUNT 5.7 K/mm3 (4.0-10.0)
[2017-01-06 12:59] LABS: VITAMIN B12 LEVEL 1083 PG/ML (247-911)
[2017-01-06 13:23] LABS: ANION GAP 10 MEQ/L (8-16); BLOOD UREA NITROGEN 19 MG/DL (7-18); CALCIUM LEVEL 8.9 MG/DL (8.8-10.2); CARBON DIOXIDE LEVEL 23 MEQ/L (21-32); CHLORIDE LEVEL 106 MEQ/L (98-107); FERRITIN 443 NG/ML (8-252); GLOMERULAR FILTRATION RATE > 60.0 (>32); GLUCOSE, FASTING 88 MG/DL (83-110); PERCENT SATURATION 15.8 % (13.2-37.4); POTASSIUM SERUM 4.8 MEQ/L (3.5-5.1); SODIUM LEVEL 139 MEQ/L (136-145); TOTAL IRON BINDING CAPACITY 298 UG/DL (250-450)
== END ==
DX: D64.9 Anemia, unspecified (principal)

== ENCOUNTER → 2017-01-20 | Outpatient (REF) | payer MEDICARE ==
[2017-01-20 11:39] LABS: MEAN CORPUSCULAR HGB CONC 31.2 g/dl (32.0-36.5); MEAN CORPUSCULAR VOLUME 99.4 fl (80.0-96.0); RED CELL DISTRIBUTION WIDTH 13.5 % (11.5-14.5); WHITE BLOOD COUNT 9.4 K/mm3 (4.0-10.0)
[2017-01-20 12:09] LABS: ANION GAP 10 MEQ/L (8-16); BLOOD UREA NITROGEN 25 MG/DL (7-18); CALCIUM LEVEL 9.1 MG/DL (8.8-10.2); CARBON DIOXIDE LEVEL 24 MEQ/L (21-32); CHLORIDE LEVEL 104 MEQ/L (98-107); CREATININE FOR GFR 0.89 MG/DL (0.55-1.02); GLOMERULAR FILTRATION RATE > 60.0 (>32); GLUCOSE, FASTING 132 MG/DL (83-110); POTASSIUM SERUM 4.2 MEQ/L (3.5-5.1); SODIUM LEVEL 138 MEQ/L (136-145)
== END ==
DX: Z00.00 Encounter for general adult medical examination without abnormal findings (principal)

== ENCOUNTER → 2017-02-17 | Outpatient (REF) ==
[2017-02-17 11:26] LABS: MEAN CORPUSCULAR HEMOGLOBIN 30.4 pg (27.0-33.0); MEAN CORPUSCULAR HGB CONC 31.6 g/dl (32.0-36.5); MEAN CORPUSCULAR VOLUME 96.1 fl (80.0-96.0); RED CELL DISTRIBUTION WIDTH 13.6 % (11.5-14.5); WHITE BLOOD COUNT 7.4 K/mm3 (4.0-10.0)
[2017-02-17 11:51] LABS: ANION GAP 7 MEQ/L (8-16); BLOOD UREA NITROGEN 17 MG/DL (7-18); CALCIUM LEVEL 9.7 MG/DL (8.8-10.2); CARBON DIOXIDE LEVEL 27 MEQ/L (21-32); CHLORIDE LEVEL 107 MEQ/L (98-107); GLOMERULAR FILTRATION RATE > 60.0 (>32); GLUCOSE, FASTING 98 MG/DL (83-110); POTASSIUM SERUM 4.2 MEQ/L (3.5-5.1); SODIUM LEVEL 141 MEQ/L (136-145)
== END ==
DX: Z48.89 Encounter for other specified surgical aftercare (principal)

== ENCOUNTER → 2017-03-25 | Outpatient (REF) ==
[2017-03-25 09:33] LABS: MEAN CORPUSCULAR HEMOGLOBIN 29.1 pg (27.0-33.0); MEAN CORPUSCULAR HGB CONC 31.1 g/dl (32.0-36.5); MEAN CORPUSCULAR VOLUME 93.6 fl (80.0-96.0); RED CELL DISTRIBUTION WIDTH 15.2 % (11.5-14.5); WHITE BLOOD COUNT 5.7 10^3/uL (4.0-10.0)
[2017-03-25 10:23] LABS: ANION GAP 9 MEQ/L (8-16); BLOOD UREA NITROGEN 25 MG/DL (7-18); CALCIUM LEVEL 9.5 MG/DL (8.8-10.2); CARBON DIOXIDE LEVEL 28 MEQ/L (21-32); CHLORIDE LEVEL 105 MEQ/L (98-107); CREATININE FOR GFR 0.91 MG/DL (0.55-1.02); GLOMERULAR FILTRATION RATE > 60.0 (>32); GLUCOSE, FASTING 92 MG/DL (83-110); SODIUM LEVEL 142 MEQ/L (136-145)
== END ==
DX: Z01.818 Encounter for other preprocedural examination (principal)

== ENCOUNTER → 2017-04-21 | Outpatient (REF) ==
[2017-04-21 13:14] LABS: ALBUMIN 3.2 GM/DL (3.2-5.2); ALBUMIN/GLOBULIN RATIO 0.97 (1.00-1.93); ALKALINE PHOSPHATASE 93 U/L (45-117); ALT/SGPT 13 U/L (12-78); AST/SGOT 23 U/L (15-37); BILIRUBIN,DIRECT < 0.1 MG/DL (0.0-0.2); BILIRUBIN,TOTAL 0.4 MG/DL (0.2-1.0); TOTAL PROTEIN 6.5 GM/DL (6.4-8.2)
== END ==
DX: I10 Essential (primary) hypertension (principal)

== ENCOUNTER → 2017-06-23 | Outpatient (REF) ==
[2017-06-23 10:15] LABS: MEAN CORPUSCULAR HEMOGLOBIN 29.9 pg (27.0-33.0); MEAN CORPUSCULAR HGB CONC 31.8 g/dl (32.0-36.5); MEAN CORPUSCULAR VOLUME 94.1 fl (80.0-96.0); PLATELET COUNT, AUTOMATED 280 10^3/uL (150-450); RED CELL DISTRIBUTION WIDTH 14.1 % (11.5-14.5); WHITE BLOOD COUNT 5.2 10^3/uL (4.0-10.0)
[2017-06-23 10:42] LABS: ALBUMIN 3.1 GM/DL (3.2-5.2); ALBUMIN/GLOBULIN RATIO 0.91 (1.00-1.93); ALKALINE PHOSPHATASE 82 U/L (45-117); ALT/SGPT 11 U/L (12-78); ANION GAP 10 MEQ/L (8-16); AST/SGOT 15 U/L (7-37); BILIRUBIN,DIRECT < 0.1 MG/DL (0.0-0.2); BILIRUBIN,TOTAL 0.3 MG/DL (0.2-1.0); BLOOD UREA NITROGEN 20 MG/DL (7-18); CALCIUM LEVEL 9.1 MG/DL (8.8-10.2); CARBON DIOXIDE LEVEL 27 MEQ/L (21-32); CHLORIDE LEVEL 105 MEQ/L (98-107); CREATININE FOR GFR 0.79 MG/DL (0.55-1.02); GLOMERULAR FILTRATION RATE > 60.0 (>32); GLUCOSE, FASTING 89 MG/DL (83-110); POTASSIUM SERUM 3.7 MEQ/L (3.5-5.1); SODIUM LEVEL 142 MEQ/L (136-145); TOTAL PROTEIN 6.5 GM/DL (6.4-8.2)
== END ==
DX: I10 Essential (primary) hypertension (principal)

== ENCOUNTER → 2017-07-15 | Outpatient (REF) ==
[2017-07-15 11:39] LABS: ALBUMIN 3.3 GM/DL (3.2-5.2); ALBUMIN/GLOBULIN RATIO 0.89 (1.00-1.93); ALKALINE PHOSPHATASE 87 U/L (45-117); ALT/SGPT 13 U/L (12-78); ANION GAP 9 MEQ/L (8-16); AST/SGOT 17 U/L (7-37); BILIRUBIN,TOTAL 0.4 MG/DL (0.2-1.0); BLOOD UREA NITROGEN 25 MG/DL (7-18); CALCIUM LEVEL 9.4 MG/DL (8.8-10.2); CARBON DIOXIDE LEVEL 26 MEQ/L (21-32); CHLORIDE LEVEL 106 MEQ/L (98-107); CREATININE FOR GFR 0.91 MG/DL (0.55-1.02); GLOMERULAR FILTRATION RATE > 60.0 (>32); GLUCOSE, FASTING 122 MG/DL (83-110); POTASSIUM SERUM 3.8 MEQ/L (3.5-5.1); SODIUM LEVEL 141 MEQ/L (136-145)
== END ==
DX: I10 Essential (primary) hypertension (principal)

== ENCOUNTER → 2018-04-27 | Outpatient (REF) ==
[2018-04-27 10:41] LABS: HEMATOCRIT 39.9 % (36.0-47.0); HEMOGLOBIN 12.8 g/dl (12.0-15.5); MEAN CORPUSCULAR HEMOGLOBIN 32.3 pg (27.0-33.0); MEAN CORPUSCULAR HGB CONC 32.1 g/dl (32.0-36.5); MEAN CORPUSCULAR VOLUME 100.8 fl (80.0-96.0); PLATELET COUNT, AUTOMATED 239 10^3/uL (150-450); RED BLOOD COUNT 3.96 10^6/uL (4.00-5.40); RED CELL DISTRIBUTION WIDTH 12.9 % (11.5-14.5); WHITE BLOOD COUNT 8.6 10^3/uL (4.0-10.0)
[2018-04-27 11:02] LABS: ALBUMIN 3.3 GM/DL (3.2-5.2); ALBUMIN/GLOBULIN RATIO 1.06 (1.00-1.93); ALKALINE PHOSPHATASE 78 U/L (45-117); ALT/SGPT 15 U/L (12-78); ANION GAP 8 MEQ/L (8-16); AST/SGOT 14 U/L (7-37); BILIRUBIN,TOTAL 0.4 MG/DL (0.2-1.0); BLOOD UREA NITROGEN 21 MG/DL (7-18); CALCIUM LEVEL 9.2 MG/DL (8.8-10.2); CARBON DIOXIDE LEVEL 26 MEQ/L (21-32); CHLORIDE LEVEL 105 MEQ/L (98-107); CREATININE FOR GFR 0.78 MG/DL (0.55-1.30); GLOMERULAR FILTRATION RATE > 60.0 (>32); GLUCOSE, FASTING 97 MG/DL (70-100); SODIUM LEVEL 139 MEQ/L (136-145); TOTAL PROTEIN 6.4 GM/DL (6.4-8.2)
== END ==
DX: R34 Anuria and oliguria (principal)

== ENCOUNTER → 2018-06-23 | Outpatient (REF) ==
[2018-06-23 09:56] LABS: HEMATOCRIT 40.7 % (36.0-47.0); MEAN CORPUSCULAR HEMOGLOBIN 31.5 pg (27.0-33.0); MEAN CORPUSCULAR HGB CONC 31.9 g/dl (32.0-36.5); MEAN CORPUSCULAR VOLUME 98.5 fl (80.0-96.0); PLATELET COUNT, AUTOMATED 281 10^3/uL (150-450); RED BLOOD COUNT 4.13 10^6/uL (4.00-5.40)
[2018-06-23 10:30] LABS: ALBUMIN 3.4 GM/DL (3.2-5.2); ALT/SGPT 19 U/L (12-78); BILIRUBIN,TOTAL 0.5 MG/DL (0.2-1.0); BLOOD UREA NITROGEN 18 MG/DL (7-18); CARBON DIOXIDE LEVEL 27 MEQ/L (21-32); CHLORIDE LEVEL 106 MEQ/L (98-107); CREATININE FOR GFR 0.63 MG/DL (0.55-1.30); GLOMERULAR FILTRATION RATE > 60.0 (>32); GLUCOSE, FASTING 82 MG/DL (70-100); POTASSIUM SERUM 4.4 MEQ/L (3.5-5.1); SODIUM LEVEL 140 MEQ/L (136-145); TOTAL PROTEIN 6.9 GM/DL (6.4-8.2)
== END ==
DX: I10 Essential (primary) hypertension (principal)

== ENCOUNTER → 2018-12-14 | Outpatient (REF) ==
[2018-12-14 12:35] LABS: HEMATOCRIT 37.8 % (36.0-47.0); HEMOGLOBIN 12.2 g/dl (12.0-15.5); MEAN CORPUSCULAR HEMOGLOBIN 31.8 pg (27.0-33.0); MEAN CORPUSCULAR HGB CONC 32.3 g/dl (32.0-36.5); MEAN CORPUSCULAR VOLUME 98.4 fl (80.0-96.0); PLATELET COUNT, AUTOMATED 227 10^3/uL (150-450); RED BLOOD COUNT 3.84 10^6/uL (4.00-5.40); WHITE BLOOD COUNT 9.1 10^3/uL (4.0-10.0)
[2018-12-14 12:41] LABS: ALBUMIN 3.1 GM/DL (3.2-5.2); ALT/SGPT 31 U/L (12-78); BILIRUBIN,TOTAL 0.5 MG/DL (0.2-1.0); BLOOD UREA NITROGEN 27 MG/DL (7-18); CALCIUM LEVEL 8.8 MG/DL (8.8-10.2); CARBON DIOXIDE LEVEL 23 MEQ/L (21-32); CHLORIDE LEVEL 109 MEQ/L (98-107); CREATININE FOR GFR 0.93 MG/DL (0.55-1.30); GLOMERULAR FILTRATION RATE > 60.0 (>32); GLUCOSE, FASTING 100 MG/DL (70-100); POTASSIUM SERUM 3.8 MEQ/L (3.5-5.1); SODIUM LEVEL 140 MEQ/L (136-145); TOTAL PROTEIN 6.4 GM/DL (6.4-8.2)
--- NOTE | 2018-12-14 16:11 | REP ---
Portable chest x-ray: Single view. History: Cough and fever. No comparison imaging. Findings: The patient is rotated to stay actually to the left for the current exposure. There is some linear plate-like atelectasis in the left base. No definite infiltrate is seen. Heart is not felt to be enlarged. Impression: Patient is rotated to the left. No acute infiltrate is seen. Linear plate-like atelectasis left base. Electronically Signed by Anand Hernandez MD 12/14/2018 04:03 P
== END ==
DX: J98.11 Atelectasis (principal)

== ENCOUNTER → 2018-12-21 | Outpatient (REF) ==
[2018-12-21 10:41] LABS: ALBUMIN 3.3 GM/DL (3.2-5.2); ALT/SGPT 25 U/L (12-78); BILIRUBIN,TOTAL 0.3 MG/DL (0.2-1.0); BLOOD UREA NITROGEN 33 MG/DL (7-18); CALCIUM LEVEL 8.9 MG/DL (8.8-10.2); CARBON DIOXIDE LEVEL 23 MEQ/L (21-32); CHLORIDE LEVEL 112 MEQ/L (98-107); CREATININE FOR GFR 0.87 MG/DL (0.55-1.30); GLOMERULAR FILTRATION RATE > 60.0 (>32); GLUCOSE, FASTING 72 MG/DL (70-100); POTASSIUM SERUM 4.5 MEQ/L (3.5-5.1); SODIUM LEVEL 143 MEQ/L (136-145); TOTAL PROTEIN 6.7 GM/DL (6.4-8.2)
== END ==
DX: I10 Essential (primary) hypertension (principal)

== ENCOUNTER → 2019-04-13 | Outpatient (REF) ==
[~2019-04-13] MED LIST changes: +CYAN500T8 PO; -VITA500T3 PO
[2019-04-13 16:33] LABS: HEMATOCRIT 46.8 % (36.0-47.0); HEMOGLOBIN 14.8 g/dl (12.0-15.5); MEAN CORPUSCULAR HEMOGLOBIN 30.8 pg (27.0-33.0); MEAN CORPUSCULAR HGB CONC 31.6 g/dl (32.0-36.5); MEAN CORPUSCULAR VOLUME 97.5 fl (80.0-96.0); PLATELET COUNT, AUTOMATED 291 10^3/uL (150-450); WHITE BLOOD COUNT 8.1 10^3/uL (4.0-10.0)
[2019-04-13 16:45] LABS: ALBUMIN 3.1 GM/DL (3.2-5.2); ALT/SGPT 82 U/L (12-78); BILIRUBIN,TOTAL 0.4 MG/DL (0.2-1.0); BLOOD UREA NITROGEN 44 MG/DL (7-18); CALCIUM LEVEL 9.4 MG/DL (8.8-10.2); CARBON DIOXIDE LEVEL 27 MEQ/L (21-32); CHLORIDE LEVEL 118 MEQ/L (98-107); CREATININE FOR GFR 0.89 MG/DL (0.55-1.30); GLOMERULAR FILTRATION RATE > 60.0 (>32); GLUCOSE, FASTING 103 MG/DL (70-100); POTASSIUM SERUM 4.3 MEQ/L (3.5-5.1); SODIUM LEVEL 151 MEQ/L (136-145); TOTAL PROTEIN 6.9 GM/DL (6.4-8.2)
== END ==
PROVIDERS: ATTEND Internal Medicine
DX: R53.83 Other fatigue (principal)

== ENCOUNTER → 2019-04-14 | Outpatient (REF) ==
[2019-04-14 12:16] LABS: HEMATOCRIT 43.5 % (36.0-47.0); HEMOGLOBIN 13.3 g/dl (12.0-15.5); MEAN CORPUSCULAR HEMOGLOBIN 30.2 pg (27.0-33.0); MEAN CORPUSCULAR HGB CONC 30.6 g/dl (32.0-36.5); MEAN CORPUSCULAR VOLUME 98.9 fl (80.0-96.0); PLATELET COUNT, AUTOMATED 246 10^3/uL (150-450); WHITE BLOOD COUNT 8.8 10^3/uL (4.0-10.0)
[2019-04-14 12:34] LABS: ALBUMIN 2.9 GM/DL (3.2-5.2); ALT/SGPT 77 U/L (12-78); BILIRUBIN,TOTAL 0.4 MG/DL (0.2-1.0); BLOOD UREA NITROGEN 39 MG/DL (7-18); CALCIUM LEVEL 9.4 MG/DL (8.8-10.2); CARBON DIOXIDE LEVEL 28 MEQ/L (21-32); CHLORIDE LEVEL 120 MEQ/L (98-107); GLOMERULAR FILTRATION RATE > 60.0 (>32); GLUCOSE, FASTING 95 MG/DL (70-100); SODIUM LEVEL 153 MEQ/L (136-145); TOTAL PROTEIN 6.4 GM/DL (6.4-8.2)
== END ==
PROVIDERS: ATTEND Internal Medicine
DX: R53.83 Other fatigue (principal)

== ENCOUNTER → 2019-04-15 | Outpatient (REF) ==
[2019-04-15 12:26] LABS: ALBUMIN 2.8 GM/DL (3.2-5.2); ALT/SGPT 110 U/L (12-78); BILIRUBIN,TOTAL 0.9 MG/DL (0.2-1.0); BLOOD UREA NITROGEN 29 MG/DL (7-18); CARBON DIOXIDE LEVEL 20 MEQ/L (21-32); CHLORIDE LEVEL 120 MEQ/L (98-107); CREATININE FOR GFR 0.87 MG/DL (0.55-1.30); GLOMERULAR FILTRATION RATE > 60.0 (>32); GLUCOSE, FASTING 88 MG/DL (70-100); POTASSIUM SERUM 4.8 MEQ/L (3.5-5.1); SODIUM LEVEL 149 MEQ/L (136-145); TOTAL PROTEIN 6.5 GM/DL (6.4-8.2)
== END ==
PROVIDERS: ATTEND Internal Medicine
DX: E87.0 Hyperosmolality and hypernatremia (principal)

== ENCOUNTER → 2019-04-16 | Outpatient (REF) ==
[2019-04-16 11:42] LABS: ALBUMIN 2.2 GM/DL (3.2-5.2); ALT/SGPT 114 U/L (12-78); BILIRUBIN,TOTAL 0.3 MG/DL (0.2-1.0); BLOOD UREA NITROGEN 23 MG/DL (7-18); CALCIUM LEVEL 8.4 MG/DL (8.8-10.2); CARBON DIOXIDE LEVEL 27 MEQ/L (21-32); CHLORIDE LEVEL 113 MEQ/L (98-107); CREATININE FOR GFR 0.71 MG/DL (0.55-1.30); GLOMERULAR FILTRATION RATE > 60.0 (>32); GLUCOSE, FASTING 96 MG/DL (70-100); POTASSIUM SERUM 3.8 MEQ/L (3.5-5.1); SODIUM LEVEL 145 MEQ/L (136-145); TOTAL PROTEIN 5.2 GM/DL (6.4-8.2)
== END ==
PROVIDERS: ATTEND Internal Medicine
DX: R53.83 Other fatigue (principal)

== ENCOUNTER → 2019-04-19 | Outpatient (REF) ==
[2019-04-19 11:20] LABS: ALBUMIN 2.6 GM/DL (3.2-5.2); ALT/SGPT 156 U/L (12-78); BILIRUBIN,TOTAL 0.5 MG/DL (0.2-1.0); BLOOD UREA NITROGEN 15 MG/DL (7-18); CALCIUM LEVEL 8.9 MG/DL (8.8-10.2); CARBON DIOXIDE LEVEL 25 MEQ/L (21-32); CHLORIDE LEVEL 106 MEQ/L (98-107); CREATININE FOR GFR 0.69 MG/DL (0.55-1.30); GLOMERULAR FILTRATION RATE > 60.0 (>32); GLUCOSE, FASTING 98 MG/DL (70-100); POTASSIUM SERUM 3.9 MEQ/L (3.5-5.1); SODIUM LEVEL 140 MEQ/L (136-145); TOTAL PROTEIN 6.2 GM/DL (6.4-8.2)
== END ==
PROVIDERS: ATTEND Internal Medicine
DX: R53.83 Other fatigue (principal)